=== PATIENT | male | born 1960 | race Caucasian/White ===

== ENCOUNTER 2023-06-28 10:50 | Inpatient (IN) ==
--- NOTE | 2023-06-07 12:02 | PAT Medication Instructions ---
Medication Instructions Date of Service June 07, 2023 Home Medications fiber 1 tab PO QAM rivaroxaban 10 mg tablet (Xarelto) 10 mg PO QPM acetaminophen 325 mg tablet (Tylenol) 325 mg PO QID PRN Pain ASK your prescriber and surgeon rivaroxaban 10 mg tablet (Xarelto) 10 mg PO QPM (From anesthesia perspective, Rivaroxaban/Xarelto needs to be stopped 72 hours before surgery. Please check if okay with doctor that prescribes this to you) DO NOT take the morning of surgery fiber 1 tab PO QAM Take morning of surgery With a small sip of water, OTHERWISE NOTHING TO EAT OR DRINK AFTER MIDNIGHT: acetaminophen 325 mg tablet (Tylenol) 325 mg PO QID PRN Pain (if needed) Other Notes If you have any questions please call us at [phone] or [phone] or [phone] or [phone]
--- NOTE | 2023-06-10 11:32 | Anesthesiology Consultation ---
Date of Service June 10, 2023 Assessment & Plan (1) Encounter for pre-operative examination: Chart Review Chart Review: Acceptable Risk for Surgery (pending preop PRP and PCP clearance ) and Patient seen in Pre Admission Testing - Awaiting PRP (hemolyzed)- will fax paper order to [facility] for patient to get done as outpatient at his convenience - Awaiting PCP clearance (patient scheduling PCP appt in near future) (Dr. Linda Rajput) - Patient initially scheduled for procedure in October 2022- postponed due to insurance issues Per PAT appt on 06/10/23, no recent illness/disease exposures, illness related symptoms, or recent illness/disease positive tests. Will leave to surgeon's discretion if preop Covid testing needed Teaching & Discussion Pre-Anesthesia Teaching/Discussion Notes: Instructed NPO after midnight before surgery,except medications with 15 cc of water. Medication instructions provided according to the [facility] guidelines. History Surgery Operation Date: 06/28/23 12:25 Proposed Procedures p L3-L4 and L5-S1 Decompression, L3-S1 Fusion, L4-L5 Hardware Removal, Spinal Cord Monitoring - Prabhu Roth, Height/Weight Height: 5 ft 5 in Weight: 81.8 kg Allergies Allergy/AdvReac Type Severity Reaction Status Date / Time codeine AdvReac Unknown N/V Verified 06/04/23 15:16 Medications Home Medications Medication Instructions Recorded Confirmed Last Taken fiber 1 tab PO QAM 10/12/22 06/04/23 Unknown rivaroxaban 10 mg tablet (Xarelto) 10 mg PO QPM 10/12/22 06/04/23 Unknown acetaminophen 325 mg tablet 325 mg PO QID PRN Pain 06/04/23 06/04/23 Unknown (Tylenol) Past Medical History Medical History Chronic back pain Diverticular disease History of diverticulitis Stable - no flares for >1 year History of pulmonary embolism 2008 + Fall 2021 Unknown etiology, taking Xarelto HLD (hyperlipidemia) Spinal stenosis Exercise / Class Metabolic Activity II 4-5 Yardwork/Stairs/Walk up hill (one flight of stairs- no chest pain or SOB ) Past Family History Family History Other No family history of adverse response to anesthesia Past Surgical History Surgical History (Updated 06/10/23 @ 11:28 by Lainey Leo PA-C) History of back surgery History of colonoscopy History of wisdom tooth extraction Hx of fusion of cervical spine ROM wnl Past Anesthesia History No Hx of Anesthesia Complications and No Family Hx of Anesthesia Complications History of PONV No Hx of PONV and Hx of Motion Sickness Social History Smoking Status: Never smoker tobacco type: smokeless tobacco Do You Dip or Chew Tobacco: No (quit 05/24/23) Hx Alcohol Use: Yes Alcohol type: beer alcohol intake frequency: 0-2 drinks per day (2 beers/day ) Hx Substance Use: No substance use type: does not use Review of Systems - Hx of snoring- no witnessed apnea- no hx of sleep study Patient denies chest pain, shortness of breath, dyspnea on exertion, reflux, cough, wheezing, palpitations. No hx of seizures, stroke, DE. No hx of blood transfusions Physical Exam Vital Signs VITALS BP 152/84 P 93 TEMP 98.3 SP02 95% RESP 16 Constitutional no acute distress ENMT Mouth: no TMJ clicking Thyromental Distance: > or= 3.5 Finger Breadths (3.5) Mallampati Class: III Missing molars Neck + limited neck extension (mild) Respiratory normal respiratory effort; no respiratory distress Auscultation: lungs clear to auscultation bilaterally; no wheezes Cardiovascular Rate/Rhythm: regular rate and regular rhythm Heart Sounds: no murmur Vessels: no carotid bruit Musculoskeletal Spine: no pain with cervical ROM Extremities: extremities normal to inspection Psychiatric Orientation: alert Lab Results Anesthesia Preop Results Results Anesthesia Widget: WBC 6.61 K/ul (4.8-10.8) 06/10/23 Hgb 16.4 g/dl (14.0-18.0) 06/10/23 Hct 46.5 % (42.0-52.0) 06/10/23 Plt 147 K/uL (130-400) 06/10/23 PT 11.6 Seconds (9.0-12.0) 06/10/23 PTT 31 Seconds (21-31) 06/10/23 INR 1.1 (0.9-1.1) 06/10/23 Urine Color Yellow 06/10/23 Urine Appearance Clear (Clear) 06/10/23 Urine pH 5.0 (4.5-7.5) 06/10/23 Urine Specific [place] 1.019 (1.000-1.030) 06/10/23 Urine Protein Negative (Negative) 06/10/23 Urine Glucose (UA) Negative (Negative) 06/10/23 Urine Ketones Negative (Negative) 06/10/23 Urine Blood Negative (Negative) 06/10/23 Urine Nitrite Negative (Negative) 06/10/23 Urine Bilirubin Negative (Negative) 06/10/23 Urine Urobilinogen Negative (Negative) 06/10/23 Urine Leukocyte Esterase Negative (Negative) 06/10/23 Blood Type A Positive 06/10/23 Antibody Screen NEGATIVE 06/10/23 Testing Electrocardiogram Date: 10/20/22 Findings: + NSR @ (93) Chest X-Ray Date: 10/20/22 FINDINGS: ACDF is seen. The cardiomediastinal silhouette is normal. The lungs are clear. No evidence of pleural effusion or pneumothorax. IMPRESSION: No acute chest disease.
[2023-06-28] MEDS: LR 15ML/HR IV SCH (11:15)
[2023-06-28] MEDS: LR 60ML/HR IV SCH (11:16)
[2023-06-28] MEDS: ACETAMINOPHEN 500 MG TAB PO SCH (11:16)
[2023-06-28] MEDS: CeleBREX 200 MG CAP PO SCH (11:17)
[2023-06-28] MEDS: GABAPENTIN 600 MG DOSE PO SCH (11:17)
[2023-06-28] MEDS ORDERED: HYDROmorphone INJ 2 MG/ML SYR/VIAL IV PRN (11:52)
[2023-06-28] MEDS ORDERED: fentaNYL citrate PF 100 MCG/2 ML VIAL IV PRN (11:52)
[2023-06-28] MEDS ORDERED: ePHEDrine sulfate 50 MG/ML AMP IV PRN (11:52)
[2023-06-28] MEDS ORDERED: PROMETHAZINE HCL 6.25 MG in SODIUM CHLORIDE 0.9% 50 ML IV PRN (11:52)
[2023-06-28] MEDS ORDERED: ATROPINE SULFATE 0.1 MG/ML 10ML SYR IV PRN (11:52)
[2023-06-28] MEDS ORDERED: ONDANSETRON INJ 2 MG/ML 2 ML VIAL IV PRN ×2 (11:52→18:20)
[2023-06-28] MEDS ORDERED: PROPOFOL IV EMULSION 10 MG/ML 20 ML VIAL IV ONE (13:33)
[2023-06-28] MEDS ORDERED: MIDAZOLAM HCL 1 MG/ML 2ML VIAL ONE (13:33)
[2023-06-28] MEDS ORDERED: ROCURONIUM BROMIDE 10 MG/ML 5 ML VIAL IV ONE ×3 (13:33→15:51)
[2023-06-28] MEDS ORDERED: fentaNYL citrate PF 100 MCG/2 ML VIAL ONE (13:33)
--- NOTE | 2023-06-28 13:43 | History & Physical Bridge Note ---
Date of Service June 28, 2023 History & Physical Bridge Note I have examined the patient, reviewed the History & Physical and in the interval since the performance of the History & Physical I have noted the following changes of clinical significance: no changes noted
--- NOTE | 2023-06-28 13:44 | History & Physical Report ---
Date of Service June 28, 2023 Assessment & Plan (1) Neurogenic claudication due to lumbar spinal stenosis: Plan: L3-L4 and L5-S1 decompression, L3-S1 fusion, hardware removal L4-L5 History of Present Illness Chief Complaint: Back and bilateral leg pain Primary Care Provider: Linda Grissom MD This is a 63-year-old male who presents with chronic persistent back and leg pain after failing course of nonoperative care is here for surgical intervention. Allergies Allergy/AdvReac Type Severity Reaction Status Date / Time codeine AdvReac Unknown N/V Verified 06/28/23 11:09 Home Medications Medication Instructions Recorded Confirmed Type fiber 1 tab PO QAM 10/12/22 06/28/23 History rivaroxaban 10 mg tablet (Xarelto) 10 mg PO QPM 10/12/22 06/28/23 History acetaminophen 325 mg tablet 325 mg PO QID PRN Pain 06/04/23 06/28/23 History (Tylenol) Past Med/Surg History Medical History (Updated 06/28/23 @ 13:43 by Prabhu Roth DO) Spinal stenosis Diverticular disease History of diverticulitis Stable - no flares for >1 year Chronic back pain HLD (hyperlipidemia) History of pulmonary embolism 2008 + Fall 2021 Unknown etiology, taking Xarelto Surgical History History of wisdom tooth extraction Hx of fusion of cervical spine ROM wnl History of back surgery History of colonoscopy Family History Other No family history of adverse response to anesthesia Social History Smoking Status: Never smoker Tobacco Type: Smokeless Tobacco (Dip or Chew) Second Hand Exposure: No; Do You Dip or Chew Tobacco: No (quit 05/24/23); Tobacco Cessation Education Requested by Patient: No Hx Alcohol Use: Yes Alcohol type: beer Hx Substance Use: No Preferred Language: Lao Communication Ability: Effective Surgical Scrub Tech Required: No Beliefs That Will Affect Care: None Current Living Situation: Spouse Feels Safe at Home: Yes Safety Concerns: Feels Safe At This Time Assistive Devices: Glasses Physical Exam Physical Exam: Patient is alert and oriented Heart regular in rhythm Lungs clear Results & Data Results & Data Vital Signs (Past 12 Hours) Vital Signs Temp Pulse Resp BP Pulse Ox O2 Del Method 06/28/23 11:05 36.8 C 102 H 20 157/93 H 94 Room Air
[2023-06-28] MEDS: ceFAZolin 2000MG 2,000 MG/15 ML SYR IV SCH ×2 (14:21→22:09)
[2023-06-28] MEDS ORDERED: DEXAMETHASONE SOD INJ 4 MG/ML VIAL ONE (14:54)
[2023-06-28] MEDS ORDERED: ONDANSETRON INJ 2 MG/ML 2 ML VIAL ONE (14:54)
[2023-06-28] MEDS ORDERED: PHENYLEPHRINE 100MCG/ML 10ML SYR IV ONE (14:54)
[2023-06-28] MEDS: ceFAZolin 330 MG/ML 1 GM VIAL ONE (14:55)
[2023-06-28] MEDS: BUPIVACAINE/EPINEPHRINE 0.5% MPF 1:200,000 30 ML VIAL ONE (14:55)
[2023-06-28] MEDS ORDERED: HYDROmorphone INJ 2 MG/ML SYR/VIAL ONE (15:28)
[2023-06-28] MEDS ORDERED: SUGAMMADEX SODIUM 200 MG/2 ML VIAL IV ONE (16:55)
[2023-06-28] MEDS: FLOSEAL HEMOSTATIC MATRIX 10ML TOP ONE (17:01)
--- NOTE | 2023-06-28 17:09 | Operative Report ---
Post Operative Report Pre & Post Diagnosis Operation Date: 06/28/23 12:25 Pre-Op Diagnosis: Neurogenic claudication due to lumbar spinal stenosis Post-Op Diagnosis: Neurogenic claudication due to lumbar spinal stenosis I identified the patient and participated in the time-out.: Yes Procedure Operation Date: 06/28/23 12:25 Actual Procedures 1. Removal of posterior instrumentation L4-5. #2 exploration of fusion L4-5 per #3 lumbar decompression with bilateral medial facetectomies and foraminotomies L2-L3 L3-L4 L5-S1. #4 posterior spinal fusion L3-L4 L5-S1. #5 there is posterior instrumentation L3-S1. #6 interbody fusion L3-L4 L5-S1. #7 placement Spira 14 x 26 mm at L3-L4 and 13 x 26 mm at L5-S1. #8 placement locally harvested morselized autograft posterior gutters. #9 placement of infuse collagen sponge combined with Koros in the posterior lateral gutters and Morpheus bone graft interbody space. Surgeon Prabhu Roth, Apprentice Clarissa Dumas Estimated Blood Loss 450 Findings Consistent with Post-Op Diagnosis Specimens none Indications This is a 63-year-old male who presents above-mentioned diagnosis of failed course of nonoperative care is here for surgical invention. Description of Procedure Patient was met with identified informed consent obtained. Patient was then taken to the operative suite underwent ablation placed in a prone position on the Pineda table on top of the Jason frame. All bony prominences well-padded eyes inspected to ensure no external pressure placed upon the. This point the lumbar spine was prepped and draped in normal sterile fashion. Sharp dissection with the assistance of Bovie cautery to form down to exposing the lamina and transverse processes of L3 instrumentation at L4-5 and the lamina and transverse processes of L5 and the sacral ala bilaterally. Then proceeded with the hardware at L4-L5 bilaterally. Explored the fusion mass noting it to be mature intact. Then performed a complete laminectomy of L5 including bilateral medial facetectomies and foraminotomies addressing all spinal stenosis and neural compression. Then proceeded to L3-L4 performed a complete laminectomy with bilateral medial facetectomies and foraminotomies and lastly partial laminectomy of L2 with bilateral medial facetectomies. Pedicle screws were then placed in L3-L4-L5 and S1 levels bilaterally with assistance of fluoroscopy in the process deven contoured and placed. By way of transforaminal approach and right complete discectomy of L5-S1 was performed endplates guarded to subcortical mean bone and a 13 x 26 mm spiral cage filled with Morpheus bone graft tapped into position. Then proceeded to L3-L4 and again by way of transforaminal approach and right complete discectomy performed endplates guided to subcortical and bone and a 14 x 26 mm spiral cage filled with I factor tapped in position. The rods were then compressed locked into final position bilaterally. The transverse processes of L3 L4-5 and sacral ala burred to subcortical bleeding bone. Infuse collagen sponge combined with Koros bone graft and locally harvested morselized autograft placed in the posterior gutters. 15 round HERACLIO inserted. The incision was then closed with 1 Vicryl fascia 2-0 Vicryl subcutaneously and 4 Monocryl for final skin closure. Steri-Strips sterile dressings placed. Patient was then taken the PACU stable condition. Please note spinal cord monitoring was utilized at the procedure no changes noted. Lastly Clarissa Dumas was present at the entire procedure involved patient positioning complex course of the surgery and final skin closure. I attest to the content of the Intraoperative Record and any orders documented therein. Any exceptions are noted below.
--- NOTE | 2023-06-28 17:15 | Fluoroscopy Report ---
INTRAOPERATIVE RADIOGRAPHS CLINICAL HISTORY: Lumbar spinal fusion surgery. Fluoro time: 21 seconds Ka,r: 16.40 mGy FINDINGS: 3 spot fluoroscopic views of the lumbar spine are presented. There is postoperative change from discectomy at L3-L4 and L5-S1 with laminectomy and posterior fusion at L3-S1. Interpedicular scr ews are present at all levels. The orthopedic hardware appears intact. IMPRESSION: Intraoperative images from lumbar spinal fusion surgery as above. Electronically signed by: Christopher Bonilla M.D. 06/28/2023 5:14 PM
--- NOTE | 2023-06-28 17:39 | Anesthesiology Progress Note ---
Date of Service June 28, 2023 Anesthesia Post Procedure Vital Signs Vital Signs: Temp Pulse Resp BP Pulse Ox O2 Del Method 06/28/23 11:05 36.8 C 102 H 20 157/93 H 94 Room Air Transfer of Care Handoff Completed per policy Notes Mental Status: alert / awake / arousable and participated in evaluation Patient Amnestic to Procedure: Yes Nausea / Vomiting: adequately controlled Pain: adequately controlled Airway Patency, RR, SpO2: stable & adequate BP & HR: stable & adequate Hydration State: stable & adequate Anesthetic Complications: no major complications apparent
[2023-06-28] MEDS ORDERED: diphenhydrAMINE Capsule 25 MG CAP PO PRN (18:20)
[2023-06-28] MEDS ORDERED: NALOXONE HCL 0.4 MG/1 ML VIAL/CARP IV PRN (18:20)
[2023-06-28] MEDS ORDERED: ONDANSETRON 4 MG OD TAB PO PRN (18:20)
[2023-06-28] MEDS ORDERED: DO NOT ADMINISTER FLU VACCINE PRN (18:20)
[2023-06-28] MEDS ORDERED: HYDROmorphone INJ 1 MG/ML SYRINGE IV PRN (18:20)
[2023-06-28] MEDS ORDERED: METOCLOPRAMIDE HCL INJ 5 MG/ML 2 ML VIAL IV PRN (18:20)
[2023-06-28] MEDS ORDERED: PROMETHAZINE HCL 12.5 MG in SODIUM CHLORIDE 0.9% 50 ML IV PRN (18:20)
[2023-06-28] MEDS ORDERED: traMADol HCL 50 MG TABLET PO PRN (18:20)
[2023-06-28] MEDS ORDERED: MAGNESIUM HYDROXIDE SUSP 30 ML UDC PO PRN (18:20)
[2023-06-28] MEDS ORDERED: ALUMINUM/MAGNESIUM SUSP 30 ML UDC PO PRN (18:20)
[2023-06-28] MEDS ORDERED: SOD PHOSPHATE/SOD BIPHOSPHATE ENEMA 132 ML BTL PR PRN (18:20)
[2023-06-28] MEDS ORDERED: bisacodyL 10 MG SUPP PR PRN (18:20)
[2023-06-28] MEDS ORDERED: LORazepam 0.5 MG TAB PO PRN (18:20)
[2023-06-28] MEDS ORDERED: ACETAMINOPHEN 500 MG TAB PO PRN (18:20)
[2023-06-28] MEDS ORDERED: LORazepam 0.5 MG in SYRINGE 0.25 ML IV PRN (18:20)
[2023-06-28] MEDS ORDERED: DO NOT ADMINISTER PNEUMOCOCCAL VACCINE PRN (18:20)
[2023-06-28] MEDS ORDERED: FAMOTIDINE 20 MG TAB PO PRN (18:20)
[2023-06-28] MEDS ORDERED: ACETAMINOPHEN 1,000 MG/100 ML VIAL IV PRN (18:20)
[2023-06-28] MEDS ORDERED: HYDROmorphone INJ 0.5 MG/0.5 ML SYR IV PRN (18:20)
[2023-06-28] MEDS ORDERED: hydrOXYzine HCl 25 MG TAB PO PRN (18:20)
--- NOTE | 2023-06-28 19:32 | Hospitalist Consultation ---
Date of Consultation June 28, 2023 Assessment & Plan (1) S/P spinal surgery: POD #0 1. Removal of posterior instrumentation L4-5. #2 exploration of fusion L4-5 per #3 lumbar decompression with bilateral medial facetectomies and foraminotomies L2-L3 L3-L4 L5-S1. #4 posterior spinal fusion L3-L4 L5-S1. #5 there is posterior instrumentation L3-S1. #6 interbody fusion L3-L4 L5-S1. #7 placement Spira 14 x 26 mm at L3-L4 and 13 x 26 mm at L5-S1. #8 placement locally harvested morselized autograft posterior gutters. #9 placement of infuse collagen sponge combined with Koros in the posterior lateral gutters and Morpheus bone graft interbody space. by Dr. Roth Pain control, PT/OT , DVT ppx by primary/ orthopedic service Monitor HERACLIO output Monitor Espino output Monitor for acute blood loss anemia, pre-op Hgb 16.4. CBC for tmrw AM ordered Pt has hx of PE - on xarelto (currently held pre-op), resume per surgeon discretion (per PCP - try to resume xarelto within 24 hrs) History of Present Illness Reason for Consultation: med consult s/p spinal surgery Requesting Physician: Dr. Roth Attending Physician: Prabhu Roth, History of Present Illness 63 yo M w/ hx of back pain, spinal stenosis, previous back surgeries, HTN, HLD, PE (on xarelto), hx of diverticulitis, who is no w s/p 1. Removal of posterior instrumentation L4-5. #2 exploration of fusion L4-5 per #3 lumbar decompression with bilateral medial facetectomies and foraminotomies L2-L3 L3-L4 L5-S1. #4 posterior spinal fusion L3-L4 L5-S1. #5 there is posterior instrumentation L3- S1. #6 interbody fusion L3-L4 L5-S1. #7 placement Spira 14 x 26 mm at L3-L4 and 13 x 26 mm at L5-S1. #8 placement locally harvested morselized autograft posterior gutters. #9 placement of infuse collagen sponge combined with Koros in the posterior lateral gutters and Morpheus bone graft interbody space, by Dr. Roth earlier today. Currently pt is laying in bed , in NAD. He is awake, alert, oriented, answers appropriately. Pain is well controlled. Currently on NS 2L suppl. O2, encouraged incentive spirometry. Denies any chest pain, shortness of breath, abdominal pain, nausea, vomiting. Has hx of PE - idiopathis, and has been on xarelto - last dose on - as he was instructed to hold the med pre-op. Ge used chew tobacco, quit 1 month ago. Denies any hx of heart disease , lung disease or diabetes. Only takes xarelto and tylenol at home. Allergies Allergy/AdvReac Type Severity Reaction Status Date / Time codeine AdvReac Unknown N/V Verified 06/28/23 11:09 Home Medications Medication Instructions Recorded Confirmed Type fiber 1 tab PO QAM 10/12/22 06/28/23 History rivaroxaban 10 mg tablet (Xarelto) 10 mg PO QPM 10/12/22 06/28/23 History acetaminophen 325 mg tablet 325 mg PO QID PRN Pain 06/04/23 06/28/23 History (Tylenol) Patient History Medical History (Updated 06/28/23 @ 13:43 by Prabhu Roth DO) Spinal stenosis Diverticular disease History of diverticulitis Stable - no flares for >1 year Chronic back pain HLD (hyperlipidemia) History of pulmonary embolism 2008 + Fall 2021 Unknown etiology, taking Xarelto Surgical History (Updated 06/28/23 @ 19:30 by Carlos Enrique Sellers MD) History of wisdom tooth extraction Hx of fusion of cervical spine ROM wnl History of back surgery History of colonoscopy Family History Other No family history of adverse response to anesthesia Social History Smoking Status: Never smoker Tobacco Type: Smokeless Tobacco (Dip or Chew) Second Hand Exposure: No; Do You Dip or Chew Tobacco: No (quit 05/24/23); Tobacco Cessation Education Requested by Patient: No Hx Alcohol Use: Yes Alcohol type: beer Hx Substance Use: No Preferred Language: Mohawk Communication Ability: Effective Patent Agent Required: No Beliefs That Will Affect Care: None Current Living Situation: Spouse Feels Safe at Home: Yes Safety Concerns: Feels Safe At This Time Assistive Devices: Glasses Review of Systems Review of Systems: All systems reviewed & are unremarkable except as noted in Subjective Physical Exam Constitutional: WD/WN, vitals as above Eyes: PERRL, conjunctivae normal, anicteric sclerae ENMT: external ear and nose normal, oropharynx normal Neck: trachea midline, no thyromegaly Respiratory: normal respiratory effort, lungs clear to auscultation Cardiovascular: RRR, no murmur, no edema Chest (Breasts): Chest: normal inspection of chest Gastrointestinal (Abdomen): normal bowel sounds, soft, nontender, no hepatosplenomegaly Musculoskeletal: no cyanosis or clubbing, extremities motor strength 5/5 Skin: no rashes, warm and dry Neurologic: PERRL, EOMI, accommodation nl, no face palsy, no dysarthria Psychiatric: A+Ox3, euthymic affect Lymphatic: no lymphedema Results & Data Results & Data Vital Signs (Past 12 Hours) Vital Signs Temp Pulse Pulse Resp BP BP Pulse Ox 06/28/23 19:15 36.6 C 100 H 18 125/72 95 06/28/23 18:40 93 H 16 117/74 95 06/28/23 18:15 36.8 C 99 H 14 133/80 96 06/28/23 18:00 91 H 12 131/76 95 06/28/23 17:50 36.7 C 92 H 12 136/84 96 06/28/23 17:40 90 13 149/78 H 98 06/28/23 17:30 89 12 139/76 100 06/28/23 17:21 36.5 C 93 H 12 141/84 H 96 06/28/23 11:05 36.8 C 102 H 20 157/93 H 94 O2 Del Method O2 Flow Rate 06/28/23 19:15 Nasal Cannula 2.0 06/28/23 18:40 Nasal Cannula 2 06/28/23 18:15 Nasal Cannula 2 06/28/23 18:00 Room Air, Nasal Cannula 2 06/28/23 17:50 Nasal Cannula 2 06/28/23 17:40 Oxymask 8 06/28/23 17:30 Oxymask 8 06/28/23 17:21 Oxymask 8 06/28/23 11:05 Room Air Laboratory Results 06/28/23 Range/Units 11:09 Blood Type A Positive Antibody Screen NEGATIVE Crossmatch See Detail Medications Administered Current Inpatient Medications Acetaminophen (Acetaminophen 500 Mg Tab) 1,000 mg PO Q8H PRN PRN Reason: MILD Pain Scale 1,2,3 & Pre PT Stop: 07/28/23 18:19 Al Hydrox/Mg Hydrox/Simethicone (Aluminum/Magnesium Susp 30 Ml Udc) 30 ml PO Q6H PRN PRN Reason: Dyspepsia Stop: 07/28/23 18:19 Atropine Sulfate (Atropine Sulfate 0.1 Mg/Ml 10ml Syr) 0.5 mg IV Q1M PRN PRN Reason: PACU Use-HR<40 &/or Bradycardi Stop: 06/28/23 19:52 Bisacodyl (Bisacodyl 10 Mg Supp) 10 mg OR DAILY PRN PRN Reason: Constipation Stop: 07/28/23 18:19 Diphenhydramine HCl (Diphenhydramine Capsule 25 Mg Cap) 25 mg PO Q6H PRN PRN Reason: Allergic Rhinitis/Insomnia Stop: 07/28/23 18:19 Ephedrine Sulfate (Ephedrine Sulfate 50 Mg/Ml Amp) 5 mg IV Q5M PRN PRN Reason: PACU Use Only-SBP<90 mmHg Stop: 06/28/23 19:52 Famotidine (Famotidine 20 Mg Tab) 20 mg PO Q12H PRN PRN Reason: Dyspepsia Stop: 07/28/23 18:19 Fentanyl Citrate (Fentanyl Citrate Pf 100 Mcg/2 Ml Vial) 25 mcg IV Q5M PRN PRN Reason: PACU Use Only-Pain Stop: 06/28/23 19:53 Hydromorphone HCl (Hydromorphone Inj 2 Mg/Ml Syr/Vial) 0.5 mg IV Q5M PRN PRN Reason: PACU Use Only-Pain Stop: 06/28/23 19:53 Hydromorphone HCl (Hydromorphone Inj 0.5 Mg/0.5 Ml Syr) 0.5 mg IV Q3H PRN PRN Reason: MODERATE Pain (Scale 4,5,6) & Pre PT Stop: 07/12/23 18:19 Hydromorphone HCl (Hydromorphone Inj 1 Mg/Ml Syringe) 1 mg IV Q3H PRN PRN Reason: SEVERE Pain (Scale 7,8,9,10) Stop: 07/12/23 18:19 Hydroxyzine HCl (Hydroxyzine Hcl 25 Mg Tab) 25 mg PO Q8H PRN PRN Reason: Anxiety Stop: 07/28/23 18:19 Lactated Ringer's (Lr) 1,000 mls @ 60 mls/hr IV .[id number] MUMTAZ Stop: 06/28/23 22:39 Last Admin: 06/28/23 11:16 Dose: Not Given Lactated Ringer's (Lr) 1,000 mls @ 15 mls/hr IV .Q24H MUMTAZ Stop: 06/29/23 05:59 Last Infusion: 06/28/23 14:18 Dose: Infused Promethazine HCl 6.25 mg/ (Sodium Chloride) 50.25 mls @ 204 mls/hr IV ONCE PRN PRN Reason: PACU Use Only-Nausea/Vomiting Stop: 06/28/23 19:53 Acetaminophen (Ofirmev) 1,000 mg in 100 mls @ 400 mls/hr IV Q8H PRN PRN Reason: Pain Rating 1-3 & Pre PT Stop: 06/29/23 18:22 Cefazolin Sodium (Ancef 2000mg) 2,000 mg in 15 mls @ 3.75 mls/min IV Q8H MUMTAZ; Protocol Stop: 06/29/23 06:33 Dexamethasone 6 mg/ Syringe 1.5 mls @ 1 mls/min IV DAILY MUMTAZ Stop: 07/01/23 09:02 Lactated Ringer's (Lr) 1,000 mls @ 100 mls/hr IV .Q10H MUMTAZ Stop: 07/28/23 18:19 Promethazine HCl 12.5 mg/ (Sodium Chloride) 50.5 mls @ 202 mls/hr IV Q6H PRN PRN Reason: Nausea &/or Vomiting Stop: 07/28/23 18:19 Lorazepam 0.5 mg/ Syringe 0.5 mls @ 2 mls/min IV Q8H PRN; Protocol PRN Reason: Sedation/Anxiety Stop: 07/28/23 18:19 Influenza Virus Vaccine Quadrival (Do Not Administer Flu Vaccine) 1 each N/A PRN PRN PRN Reason: Notification Stop: 07/28/23 18:19 Lorazepam (Lorazepam 0.5 Mg Tab) 0.5 mg PO Q8H PRN PRN Reason: Sedation/Anxiety Stop: 07/28/23 18:19 Magnesium Hydroxide (Magnesium Hydroxide Susp 30 Ml Udc) 30 ml PO Q24H PRN PRN Reason: Constipation Stop: 07/28/23 18:19 Metoclopramide HCl (Metoclopramide Hcl Inj 5 Mg/Ml 2 Ml Vial) 10 mg IV Q6H PRN PRN Reason: Nausea &/or Vomiting Stop: 07/28/23 18:19 Naloxone HCl (Naloxone Hcl 0.4 Mg/1 Ml Vial/Carp) 0.1 mg IV Q5M PRN PRN Reason: Oversedation/Resp depression Stop: 07/28/23 18:19 Ondansetron HCl (Ondansetron Inj 2 Mg/Ml 2 Ml Vial) 4 mg IV ONCE PRN PRN Reason: PACU Use Only-Nausea/Vomiting Stop: 06/28/23 19:53 Ondansetron HCl (Ondansetron Inj 2 Mg/Ml 2 Ml Vial) 4 mg IV Q6H PRN PRN Reason: Nausea &/or Vomiting Stop: 07/28/23 18:19 Ondansetron HCl (Ondansetron 4 Mg Od Tab) 4 mg PO Q6H PRN PRN Reason: Nausea Stop: 07/28/23 18:19 Oxycodone HCl (Oxycodone Hcl Ir 5 Mg Tab (Immediate Release)) 5 - 10 mg PO Q4H PRN PRN Reason: Pain & Pre PT Stop: 07/12/23 18:19 Pneumococcal Polyvalent Vaccine (Do Not Administer Pneumococcal Vaccine) 1 each N/A PRN PRN PRN Reason: Notification Stop: 07/28/23 18:19 Polyethylene Glycol (Polyethylene (Miralax) 17 Gm Pack) 17 gm PO Q6 MUMTAZ Stop: 07/29/23 05:59 Senna/Docusate Sodium (Docusate Sodium/Senna 50/8.6mg Tab) 2 tab PO HS MUMTAZ Stop: 07/28/23 20:59 Sodium Biphosphate/Sodium Phosphate (Sod Phosphate/Sod Biphosphate Enema 132 Ml Btl) 132 ml OR ONE PRN PRN Reason: Constipation Stop: 07/28/23 18:19 Tramadol HCl (Tramadol Hcl 50 Mg Tablet) 50 - 100 mg PO Q4H PRN PRN Reason: Moderate-Severe pain & Pre PT Stop: 07/28/23 18:19
[2023-06-28] MEDS: LACTATED RINGER'S 1,000 ML IV SCH (19:40)
[2023-06-28] MEDS: DOCUSATE SODIUM/SENNA 50/8.6MG TAB PO SCH (19:41)
[2023-06-29] MEDS: POLYETHYLENE (MIRALAX) 17 GM PACK PO SCH (05:19)
[2023-06-29 06:32] LABS: Basophils # (auto) 0.01 K/uL (0.00-0.20); Basophils % (auto) 0.1 %; Hematocrit (blood only) 38.3 % (42.0-52.0); Hemoglobin 12.9 g/dl (14.0-18.0); Immature Granulocytes # (auto) 0.04 K/uL (0.01-0.20); Immature Granulocytes % (auto) 0.4 %; Lymphocytes # (auto) 1.79 K/uL (1.20-3.40); Lymphocytes % (auto) 19.4 %; Mean Corpuscular Hemoglobin 30.5 pg (25.0-34.0); Mean Corpuscular Hgb Conc 33.7 g/dL (32.0-36.0); Mean Corpuscular Volume 90.5 fL (80.0-100.0); Mean Platelet Volume 11.2 fL (9.4-12.4); Monocytes # (auto) 0.31 K/uL (0.11-0.59); Monocytes % (auto) 3.4 %; Neutrophils # (auto) 7.07 K/uL (1.40-6.50); Neutrophils % (auto) 76.7 %; Platelet Count 131 K/uL (130-400); RDW Coefficient of Variation 12.5 % (11.5-14.5); RDW Standard Deviation 40.7 fL (36.4-46.3); Red Blood Count 4.23 M/uL (4.70-6.10); White Blood Count 9.22 K/ul (4.8-10.8)
[2023-06-29 06:44] LABS: BUN Creatinine Ratio 12.2 (10-20); Est GFR (African American) 104.2 ml/min; Est GFR (Non-African American) 89.9 ml/min; Magnesium 1.7 mg/dl (1.7-2.4); Phosphorus 3.2 mg/dl (2.5-4.9); Potassium 4.2 mmol/L (3.5-5.1)
[2023-06-29] MEDS: dexAMETHasone 6 MG in SYRINGE 0 ML IV SCH (07:43)
--- NOTE | 2023-06-29 11:45 | Orthopedic Progress Note ---
Date of Service June 29, 2023 Assessment & Plan (1) Neurogenic claudication due to lumbar spinal stenosis: Plan: At this time we will continue physical therapy monitor his HERACLIO operatively discharge over next few days. Admission and Anticipated Discharge Date Admission Date: June 28, 2023 Subjective Patient's back pain is controlled leg pain improved Physical Exam Physical Exam: Patient is in bed. He is comfortable. Distracted testing. Results & Data Vital Signs (Past 12 Hours) Vital Signs Temp Pulse Resp BP Pulse Ox O2 Del Method O2 Flow Rate 06/29/23 07:23 36.8 C 95 H 16 121/69 92 Room Air 06/29/23 03:08 36.7 C 83 16 123/74 95 Room Air 06/28/23 23:57 36.5 C 88 16 112/62 97 Nasal Cannula 1.0
--- NOTE | 2023-06-29 16:31 | Hospitalist Progress Note ---
Date of Service June 29, 2023 Assessment & Plan (1) S/P spinal surgery: Plan: Status post spine surgery on 06/28/2023 as below: Removal of posterior instrumentation L4-5. #2 exploration of fusion L4-5 per #3 lumbar decompression with bilateral medial facetectomies and foraminotomies L2- L3 L3-L4 L5-S1. #4 posterior spinal fusion L3-L4 L5-S1. #5 there is posterior instrumentation L3-S1. #6 interbody fusion L3-L4 L5-S1. #7 placement Spira 14 x 26 mm at L3-L4 and 13 x 26 mm at L5-S1. #8 placement locally harvested morselized autograft posterior gutters. #9 placement of infuse collagen sponge combined with Koros in the posterior lateral gutters and Morpheus bone graft interbody space. by Dr. Roth Minimal back pain with minimal radiation to the anterior thigh Has not moved his bowels yet Management will be as per orthospine Pain control, PT/OT , DVT ppx by primary/ orthopedic service Monitor for acute blood loss anemia, pre-op Hgb 16.4. CBC for tmrw AM ordered Hemoglobin remains stable at 12.9 Electrolytes are normal Pt has hx of PE - on xarelto (currently held pre-op), resume per surgeon discretion (per PCP - try to resume xarelto within 24 hrs) Will be restarted on it with the primary service feels like Remains medically stable Admission and Anticipated Discharge Date Admission Date: June 28, 2023 Subjective 06/29/2023 The patient was seen and examined in medical floor He is status post the L3-L4 and L5-S1 decompression, L3-S1 fusion and spinal monitoring He has some back pain with radiation to the thigh but denies any other significant symptom Review of Systems Review of Systems: All systems reviewed and are unremarkable except as noted below Physical Exam Physical Exam: Lying in bed without any acute distress Constitutional: well developed, well nourished and + ill appearing Eyes: PERRL, conjunctivae normal, anicteric sclerae ENMT: external ear and nose normal, oropharynx normal Neck: trachea midline, no thyromegaly Respiratory: no respiratory distress Auscultation: lungs clear to auscultation bilaterally Cardiovascular: Rate/Rhythm: regular rate and regular rhythm; not tachycardic Heart Sounds: normal S1 and normal S2; no murmur Extremities: no edema Gastrointestinal (Abdomen): Inspection/Auscultation: normal bowel sounds; abdomen not distended Percussion/Palpation: abdomen soft; abdomen nontender Musculoskeletal: No acute arthritis involving any of the joint Neurologic: normal touch/pain/proprioception and moves all extremities; no focal motor deficits Psychiatric: A+Ox3, euthymic affect Lymphatic: no cervical or axillary lymphadenopathy Results & Data Results & Data Vital Signs (Past 12 Hours) Vital Signs Temp Pulse Resp BP Pulse Ox O2 Del Method 06/29/23 14:10 36.6 C 96 H 16 126/73 95 Room Air 06/29/23 12:45 36.7 C 95 H 16 138/73 92 Room Air 06/29/23 07:23 36.8 C 95 H 16 121/69 92 Room Air Laboratory Results Short CBC 06/29/23 Range/Units 06:06 WBC 9.22 (4.8-10.8) K/ul Hgb 12.9 L (14.0-18.0) g/dl Hct 38.3 L (42.0-52.0) % Plt Count 131 (130-400) K/uL BMP 06/29/23 06:06 Sodium 134 L Potassium 4.2 Chloride 99 Carbon Dioxide 26 BUN 11 Creatinine 0.90 Glucose 162 H Calcium 9.0 Medications Administered Current Inpatient Medications Acetaminophen (Acetaminophen 500 Mg Tab) 1,000 mg PO Q8H PRN PRN Reason: MILD Pain Scale 1,2,3 & Pre PT Stop: 07/28/23 18:19 Al Hydrox/Mg Hydrox/Simethicone (Aluminum/Magnesium Susp 30 Ml Udc) 30 ml PO Q6H PRN PRN Reason: Dyspepsia Stop: 07/28/23 18:19 Bisacodyl (Bisacodyl 10 Mg Supp) 10 mg [place] DAILY PRN PRN Reason: Constipation Stop: 07/28/23 18:19 Diphenhydramine HCl (Diphenhydramine Capsule 25 Mg Cap) 25 mg PO Q6H PRN PRN Reason: Allergic Rhinitis/Insomnia Stop: 07/28/23 18:19 Famotidine (Famotidine 20 Mg Tab) 20 mg PO Q12H PRN PRN Reason: Dyspepsia Stop: 07/28/23 18:19 Hydromorphone HCl (Hydromorphone Inj 0.5 Mg/0.5 Ml Syr) 0.5 mg IV Q3H PRN PRN Reason: MODERATE Pain (Scale 4,5,6) & Pre PT Stop: 07/12/23 18:19 Hydromorphone HCl (Hydromorphone Inj 1 Mg/Ml Syringe) 1 mg IV Q3H PRN PRN Reason: SEVERE Pain (Scale 7,8,9,10) Stop: 07/12/23 18:19 Hydroxyzine HCl (Hydroxyzine Hcl 25 Mg Tab) 25 mg PO Q8H PRN PRN Reason: Anxiety Stop: 07/28/23 18:19 Acetaminophen (Ofirmev) 1,000 mg in 100 mls @ 400 mls/hr IV Q8H PRN PRN Reason: Pain Rating 1-3 & Pre PT Stop: 06/29/23 18:22 Dexamethasone 6 mg/ Syringe 1.5 mls @ 1 mls/min IV DAILY MUMTAZ Stop: 07/01/23 09:02 Last Admin: 06/29/23 07:43 Dose: 1 mls/min Promethazine HCl 12.5 mg/ (Sodium Chloride) 50.5 mls @ 202 mls/hr IV Q6H PRN PRN Reason: Nausea &/or Vomiting Stop: 07/28/23 18:19 Lorazepam 0.5 mg/ Syringe 0.5 mls @ 2 mls/min IV Q8H PRN; Protocol PRN Reason: Sedation/Anxiety Stop: 07/28/23 18:19 Influenza Virus Vaccine Quadrival (Do Not Administer Flu Vaccine) 1 each N/A PRN PRN PRN Reason: Notification Stop: 07/28/23 18:19 Lorazepam (Lorazepam 0.5 Mg Tab) 0.5 mg PO Q8H PRN PRN Reason: Sedation/Anxiety Stop: 07/28/23 18:19 Magnesium Hydroxide (Magnesium Hydroxide Susp 30 Ml Udc) 30 ml PO Q24H PRN PRN Reason: Constipation Stop: 07/28/23 18:19 Metoclopramide HCl (Metoclopramide Hcl Inj 5 Mg/Ml 2 Ml Vial) 10 mg IV Q6H PRN PRN Reason: Nausea &/or Vomiting Stop: 07/28/23 18:19 Naloxone HCl (Naloxone Hcl 0.4 Mg/1 Ml Vial/Carp) 0.1 mg IV Q5M PRN PRN Reason: Oversedation/Resp depression Stop: 07/28/23 18:19 Ondansetron HCl (Ondansetron Inj 2 Mg/Ml 2 Ml Vial) 4 mg IV Q6H PRN PRN Reason: Nausea &/or Vomiting Stop: 07/28/23 18:19 Ondansetron HCl (Ondansetron 4 Mg Od Tab) 4 mg PO Q6H PRN PRN Reason: Nausea Stop: 07/28/23 18:19 Oxycodone HCl (Oxycodone Hcl Ir 5 Mg Tab (Immediate Release)) 5 - 10 mg PO Q4H PRN PRN Reason: Pain & Pre PT Stop: 07/12/23 18:19 Pneumococcal Polyvalent Vaccine (Do Not Administer Pneumococcal Vaccine) 1 each N/A PRN PRN PRN Reason: Notification Stop: 07/28/23 18:19 Polyethylene Glycol (Polyethylene (Miralax) 17 Gm Pack) 17 gm PO Q6 MUMTAZ Stop: 07/29/23 05:59 Last Admin: 06/29/23 12:45 Dose: 17 gm Senna/Docusate Sodium (Docusate Sodium/Senna 50/8.6mg Tab) 2 tab PO HS MUMTAZ Stop: 07/28/23 20:59 Last Admin: 06/28/23 19:41 Dose: 2 tab Sodium Biphosphate/Sodium Phosphate (Sod Phosphate/Sod Biphosphate Enema 132 Ml Btl) 132 ml [place] ONE PRN PRN Reason: Constipation Stop: 07/28/23 18:19 Tramadol HCl (Tramadol Hcl 50 Mg Tablet) 50 - 100 mg PO Q4H PRN PRN Reason: Moderate-Severe pain & Pre PT Stop: 07/28/23 18:19
[2023-06-30 06:27] LABS: Basophils # (auto) 0.01 K/uL (0.00-0.20); Basophils % (auto) 0.1 %; Hematocrit (blood only) 36.6 % (42.0-52.0); Hemoglobin 12.2 g/dl (14.0-18.0); Immature Granulocytes # (auto) 0.04 K/uL (0.01-0.20); Immature Granulocytes % (auto) 0.4 %; Lymphocytes # (auto) 2.92 K/uL (1.20-3.40); Lymphocytes % (auto) 28.9 %; Mean Corpuscular Hemoglobin 30.7 pg (25.0-34.0); Mean Corpuscular Hgb Conc 33.3 g/dL (32.0-36.0); Mean Corpuscular Volume 92.2 fL (80.0-100.0); Mean Platelet Volume 11.2 fL (9.4-12.4); Monocytes # (auto) 0.76 K/uL (0.11-0.59); Monocytes % (auto) 7.5 %; Neutrophils # (auto) 6.37 K/uL (1.40-6.50); Neutrophils % (auto) 63.1 %; Platelet Count 127 K/uL (130-400); RDW Coefficient of Variation 12.7 % (11.5-14.5); RDW Standard Deviation 42.8 fL (36.4-46.3); Red Blood Count 3.97 M/uL (4.70-6.10)
[2023-06-30 06:36] LABS: BUN Creatinine Ratio 17.4 (10-20); Calcium 9.1 mg/dl (8.6-10.3); Creatinine Clr Calc Pharmacy 84.8 ml/min; Est GFR (African American) 106.2 ml/min; Est GFR (Non-African American) 91.6 ml/min; Potassium 4.8 mmol/L (3.5-5.1)
--- NOTE | 2023-06-30 08:25 | Orthopedic Progress Note ---
Date of Service June 30, 2023 Assessment & Plan (1) Neurogenic claudication due to lumbar spinal stenosis: Plan: Uche is postoperative day 2 status post hard removal L4-5, decompression instrumented fusion L3-S1. He is doing well. Will work on pain control today. Continue with aggressive bowel regimen. DVT prophylaxis is in the form of teds and SCDs. Continue with ambulation/physical therapy. Maintain HERACLIO drain. Anticipate discharge home tomorrow Admission and Anticipated Discharge Date Admission Date: June 28, 2023 Subjective Majo is postoperative day 2 status post hardware removal L4-5, decompression and instrumented fusion L3-S1. He is doing well. Bit more back and leg pain today. He had a bowel movement yesterday. HERACLIO drain output last shift was 60 cc. H&H this morning are 12.2 and 36.6 respectively. Yesterday in physical therapy [place] 290 feet Review of Systems Review of Systems: All systems reviewed & are unremarkable except as noted in HPI & below Physical Exam Physical Exam: He is laying in bed in no acute distress alert and oriented x 3 lumbar dressing is clean dry and intact with functioning HERACLIO drain Strength intact bilateral lower extremities ALEXANDER hose intact bilateral lower extremities Results & Data Vital Signs (Past 12 Hours) Vital Signs Temp Pulse Resp BP Pulse Ox O2 Del Method 06/30/23 07:09 36.7 C 82 16 119/72 94 Room Air 06/29/23 20:35 36.6 C 89 18 133/74 95 Room Air
[2023-06-30] MEDS: oxyCODONE HCL IR 5 MG TAB (IMMEDIATE RELEASE) PO PRN (08:54)
--- NOTE | 2023-06-30 15:39 | Hospitalist Progress Note ---
Date of Service June 30, 2023 Assessment & Plan (1) S/P spinal surgery: Plan: Status post spine surgery on 06/28/2023 as below: Removal of posterior instrumentation L4-5. #2 exploration of fusion L4-5 per #3 lumbar decompression with bilateral medial facetectomies and foraminotomies L2- L3 L3-L4 L5-S1. #4 posterior spinal fusion L3-L4 L5-S1. #5 there is posterior instrumentation L3-S1. #6 interbody fusion L3-L4 L5-S1. #7 placement Spira 14 x 26 mm at L3-L4 and 13 x 26 mm at L5-S1. #8 placement locally harvested morselized autograft posterior gutters. #9 placement of infuse collagen sponge combined with Koros in the posterior lateral gutters and Morpheus bone graft interbody space. by Dr. Roth Pain improved. DVT prophylaxis, diet, pain management, wound/drain management per primary team Plan History of PE-on Xarelto, recommend resuming as soon as possible when okay per surgical team. DVT prophylaxis-Per primary team Disposition-per primary team. Patient is stable. Admission and Anticipated Discharge Date Admission Date: June 28, 2023 Subjective Patient was seen and examined at bedside. He feels fine. Pain is better today. Normal oral intake. Voiding without issues. Had BM. He is expecting to go home tomorrow. Review of Systems Review of Systems: All systems reviewed & are unremarkable except as noted in Subjective Physical Exam Physical Exam: General: Lying comfortably in bed, not in distress, on room air HEENT: EOMI, SAMANTHA, MMM Chest: Clear breath sounds bilaterally, no wheezes or crackles CVS: Regular rate and rhythm, normal heart sounds, no murmur Abdomen: Soft, non tender, not distended, normal bowel sounds Neuro: Awake, alert, oriented, conversing well, non focal Extremities: No cyanosis, clubbing or edema MSK: Surgical dressing intact, HERACLIO drain with serosanguineous output Results & Data Results & Data Vital Signs (Past 12 Hours) Vital Signs Temp Pulse Resp BP Pulse Ox O2 Del Method 06/30/23 14:08 36.6 C 85 16 118/73 95 Room Air 06/30/23 07:09 36.7 C 82 16 119/72 94 Room Air Laboratory Results Short CBC 06/30/23 Range/Units 05:37 WBC 10.10 (4.8-10.8) K/ul Hgb 12.2 L (14.0-18.0) g/dl Hct 36.6 L (42.0-52.0) % Plt Count 127 L (130-400) K/uL BMP 06/30/23 05:37 Sodium 137 Potassium 4.8 Chloride 101 Carbon Dioxide 31 BUN 15 Creatinine 0.86 Glucose 112 H Calcium 9.1 Medications Administered Current Inpatient Medications Acetaminophen (Acetaminophen 500 Mg Tab) 1,000 mg PO Q8H PRN PRN Reason: MILD Pain Scale 1,2,3 & Pre PT Stop: 07/28/23 18:19 Al Hydrox/Mg Hydrox/Simethicone (Aluminum/Magnesium Susp 30 Ml Udc) 30 ml PO Q6H PRN PRN Reason: Dyspepsia Stop: 07/28/23 18:19 Bisacodyl (Bisacodyl 10 Mg Supp) 10 mg [place] DAILY PRN PRN Reason: Constipation Stop: 07/28/23 18:19 Diphenhydramine HCl (Diphenhydramine Capsule 25 Mg Cap) 25 mg PO Q6H PRN PRN Reason: Allergic Rhinitis/Insomnia Stop: 07/28/23 18:19 Famotidine (Famotidine 20 Mg Tab) 20 mg PO Q12H PRN PRN Reason: Dyspepsia Stop: 07/28/23 18:19 Hydromorphone HCl (Hydromorphone Inj 0.5 Mg/0.5 Ml Syr) 0.5 mg IV Q3H PRN PRN Reason: MODERATE Pain (Scale 4,5,6) & Pre PT Stop: 07/12/23 18:19 Hydromorphone HCl (Hydromorphone Inj 1 Mg/Ml Syringe) 1 mg IV Q3H PRN PRN Reason: SEVERE Pain (Scale 7,8,9,10) Stop: 07/12/23 18:19 Hydroxyzine HCl (Hydroxyzine Hcl 25 Mg Tab) 25 mg PO Q8H PRN PRN Reason: Anxiety Stop: 07/28/23 18:19 Dexamethasone 6 mg/ Syringe 1.5 mls @ 1 mls/min IV DAILY MUMTAZ Stop: 07/01/23 09:02 Last Admin: 06/30/23 07:34 Dose: 1 mls/min Promethazine HCl 12.5 mg/ (Sodium Chloride) 50.5 mls @ 202 mls/hr IV Q6H PRN PRN Reason: Nausea &/or Vomiting Stop: 07/28/23 18:19 Lorazepam 0.5 mg/ Syringe 0.5 mls @ 2 mls/min IV Q8H PRN; Protocol PRN Reason: Sedation/Anxiety Stop: 07/28/23 18:19 Influenza Virus Vaccine Quadrival (Do Not Administer Flu Vaccine) 1 each N/A PRN PRN PRN Reason: Notification Stop: 07/28/23 18:19 Lorazepam (Lorazepam 0.5 Mg Tab) 0.5 mg PO Q8H PRN PRN Reason: Sedation/Anxiety Stop: 07/28/23 18:19 Magnesium Hydroxide (Magnesium Hydroxide Susp 30 Ml Udc) 30 ml PO Q24H PRN PRN Reason: Constipation Stop: 07/28/23 18:19 Metoclopramide HCl (Metoclopramide Hcl Inj 5 Mg/Ml 2 Ml Vial) 10 mg IV Q6H PRN PRN Reason: Nausea &/or Vomiting Stop: 07/28/23 18:19 Naloxone HCl (Naloxone Hcl 0.4 Mg/1 Ml Vial/Carp) 0.1 mg IV Q5M PRN PRN Reason: Oversedation/Resp depression Stop: 07/28/23 18:19 Ondansetron HCl (Ondansetron Inj 2 Mg/Ml 2 Ml Vial) 4 mg IV Q6H PRN PRN Reason: Nausea &/or Vomiting Stop: 07/28/23 18:19 Ondansetron HCl (Ondansetron 4 Mg Od Tab) 4 mg PO Q6H PRN PRN Reason: Nausea Stop: 07/28/23 18:19 Oxycodone HCl (Oxycodone Hcl Ir 5 Mg Tab (Immediate Release)) 5 - 10 mg PO Q4H PRN PRN Reason: Pain & Pre PT Stop: 07/12/23 18:19 Last Admin: 06/30/23 08:54 Dose: 10 mg Pneumococcal Polyvalent Vaccine (Do Not Administer Pneumococcal Vaccine) 1 each N/A PRN PRN PRN Reason: Notification Stop: 07/28/23 18:19 Senna/Docusate Sodium (Docusate Sodium/Senna 50/8.6mg Tab) 2 tab PO HS MUMTAZ Stop: 07/28/23 20:59 Last Admin: 06/29/23 20:35 Dose: 2 tab Sodium Biphosphate/Sodium Phosphate (Sod Phosphate/Sod Biphosphate Enema 132 Ml Btl) 132 ml [place] ONE PRN PRN Reason: Constipation Stop: 07/28/23 18:19 Tramadol HCl (Tramadol Hcl 50 Mg Tablet) 50 - 100 mg PO Q4H PRN PRN Reason: Moderate-Severe pain & Pre PT Stop: 07/28/23 18:19
--- NOTE | 2023-07-01 08:10 | Discharge Summary ---
Date of Service July 01, 2023 Admission HPI Per Admitting Provider This is a 63-year-old male who presents with chronic persistent back and leg pain after failing course of nonoperative care is here for surgical intervention. Principal Diagnosis Lumbar spinal stenosis with neurogenic claudication Discharge Data Allergies Allergy/AdvReac Type Severity Reaction Status Date / Time codeine AdvReac Unknown N/V Verified 06/28/23 11:09 Consultations 06/28/23 18:20 Consult Hospitalist Routine Procedures Performed Operation Date: 06/28/23 12:25 Actual Procedures p L3-L4 and L5-S1 Decompression, L3-S1 Fusion, Spinal Cord Monitoring(Not Applicable) - Prabhu Roth DO s L4-L5 Hardware Removal(Not Applicable) - Prabhu Roth DO Ordered Studies 06/28/23 12:25 FL lumbar spine 2-3V Routine Hospital Course (1) Neurogenic claudication due to lumbar spinal stenosis: Patient underwent multilevel lumbar decompression fusion tolerated as well as taken to orthopedic floor. The progressed well over the course of his stay. Marked improvement of his neurogenic claudication. Back pain well-controlled. Excellent strength testing. HERACLIO drain decreasing appropriately. Subsidy discharged home. Discharge orders and instructions found in the chart for further review. Total Time Total Time Spent Total Time Spent (In Minutes): 20 minutes Discharge Plan Discharge Items Patient Disposition: Home - Self-Care Reason For Visit: POSTOP Discharge Diagnosis: Lumbar spinal stenosis with neurogenic claudication Activity: As commented below Non-emergency contact: Primary Care Provider Call non-emergency contact if: you have any medication questions Follow-up/Referrals: Linda Grissom MD [Primary Care Provider] - Diet: Regular Addtl Attending Provider Instructions: ACTIVITY RECOMMENDATIONS: SELF CARE INSTRUCTIONS AFTER THORACIC/LUMBAR FUSIONS 1. You may walk to your tolerance. It is good exercise for your legs and back. Expect some back and intermittent leg aches and pains. 2. You may perform "counter-top" level activities (make a sandwich, daphne with a project, etc.). 3. No bending or lifting of more than 10 pounds or back twisting of any nature (roll like a log when turning in bed). 4. You may ride in a car for 20-30 minutes at a time. No driving until after your first visit with your doctor. 5. Frequent changes of position and restricting sitting to 30 minutes at a time will help limit the amount of back spasms and stiffness you may experience. 6. You may discontinue the use of ambulatory aids (cane, crutches, etc.) once your strength and confidence allow. 7. You may airplane pilot crop dusting the shower and let water strike your incision when you arrive home at least once daily. Do not take a tub bath, sit in a hot tub or go into a swimming pool until after your first recheck in the office. SPECIAL CARE INSTRUCTIONS: VERY IMPORTANT TO READ AND REVIEW A. Your surgical incision has been closed with a cosmetic suture under the skin that will dissolve in about 6 weeks. In 14 days, you can use a pair of clean scissors and cut the suture that is left outside of the skin at the ends of your incision. 1. The small skin tapes can be removed 7 days after surgery if they have not fallen off by that point. 2. You may keep the wound open to air as much as possible to promote healing after post-op day number 5 unless told otherwise by your doctor. 3. If you think the wound looks like it is becoming infected (redness or worsening drainage) and/or you are experiencing fever, chill or worsening back pain and muscle spasms, contact the office so that we may evaluate you as soon as possible. B. Complications are uncommon, but please contact us if you have any signs or symptoms of: 1. wound infection (fever higher than 102.5 degrees F, redness, separation of wound, drainage, or increasing pain from the incision) 2. blood clots in legs (pain, swelling, redness and warmth in legs) 3. urinary tract infection (fever higher than 102.5 degrees F, burning upon urination or increased frequency of urination) 4. nerve problems (inability to walk on your toes or heels, numbness, loss of bowel or bladder control) 5. any other symptoms that concern you C. Please call the office at if you have any concerns or questions about your operation or recovery. D. No smoking! Smoking drastically decreases the chance of a solid fusion. E. Do not take any anti-inflammatory medications (Indocin, Advil, Motrin, Aspirin, Naprosyn, etc.) as these may inhibit the chance of a solid fusion. Tylenol is okay to take for pain. MANAGING PAIN AFTER SPINAL SURGERY 1. Narcotic medication is intended for short-term use and will be provided for surgical pain. Surgical pain usually lasts for a period of 4-6 weeks. Narcotic medication includes Percocet, Vicodin, Darvocet, Tylenol #3 or Lortab. 2. Longer-term pain is more appropriately treated with non-narcotic medication such as Tylenol ES. 3. Muscle spasm is not appropriately treated with narcotics. Muscle relaxers such as Soma, Flexeril or Skelaxin can be used along with Tylenol ES. 4. Remember that we all live with some "aches and pains". This is not unusual or uncommon after an injury or as we get older. a. Back pain is expected and may include muscle spasms for 4 to 6 weeks after surgery. The pain should gradually improve. If the pain worsens for no apparent reason, please contact the office. b. Intermittent leg pain may also be experienced and should not be concerned about unless it worsens for no apparent reason. If so, please contact the office. 5. We will provide appropriate medication within the normal guidelines of their prescribed use. We will also be very cautious and aware of potential abuse and extended duration of patients' medication needs. a. Pain medications are for your comfort and to assist with sleep and rest so that the tissue can heal. They are not provided in order to return to normal activity and should not be used through the day. To do so or worsening pain at night can result from ongoing tissue damage and development of tolerance to the prescribed medicine. 6. Please allow 2-3 days to process refills. Prescriptions will not be mailed but must be picked up at the office. FOLLOW UP VISIT: Keep your scheduled follow-up appointment. Any questions, please call the office at . Pending Studies at Discharge: No Stand-Alone Forms: My [facility] [employer], Smoking Cessation Medications and DC Order Prescriptions: New tramadol 50 mg tablet 50 mg PO Q6H PRN (Reason: pain, moderate) Qty: 30 0RF oxycodone 5 mg tablet 5 mg PO Q6H PRN (Reason: pain) Qty: 30 0RF Continued Xarelto 10 mg Tablet 10 mg PO QPM fiber Tablet 1 tab PO QAM acetaminophen [Tylenol] 325 mg Tablet 325 mg PO QID PRN (Reason: Pain) Discharge Orders: Discharge Order (Routine); Ordered 07/01/23 Ordered By: Prabhu Roth Admission Data Admit Date/Time: 06/28/23 17:17 Attending Provider: Prabhu Roth Admit Provider: Prabhu Roth Primary Care Provider: Linda Grissom Other Providers: Sheela Anderson; Tyler Waterman
--- NOTE | 2023-07-01 10:36 | Communication Note ---
Date of Service: July 01, 2023 Patient has already been discharged by primary team prior to me seeing him.
== END 2023-07-01 10:18 | disposition home or self-care (01) | DRG 454 ==
LOC: ASU 10:50 → 3E 17:17